=== PATIENT | male | born 1955 | race Caucasian/White ===

== ENCOUNTER 2024-02-05 14:35 | Emergency (ER) | payer OTHER ==
[2024-02-05 15:06] VITALS: BP 105/57; PULSE 71; RESP 19; TEMP 97.8; BMI 26.6
[2024-02-05] MEDS ORDERED: ACETAMINOPHEN INJECTION 100 ML IVPB ONE (15:54)
[2024-02-05] MEDS ORDERED: THIAMINE HCL 200 MG/2 ML VIAL ONE (15:54)
[2024-02-05 15:56] LABS: BASO % 1.7 % (0-2.0); EOS % 4.7 % (0-4.5); HEMATOCRIT 34.3 % (35.4-49); HEMOGLOBIN 10.8 GM/dL (11.7-16.9); LYMPH % 28.6 % (8-40); MCH 28.7 pg (25.7-33.7); MCHC 31.4 g/dl (32.0-35.9); MEAN CELL VOLUME 91.4 fl (80-96); MONO % 14.3 % (3.8-10.2); NEUT % 50.7 % (42.8-82.8); PLATELET COUNT 302 10^3/uL (134-434); RBC 3.76 M/mm3 (4.00-5.60); RDW 17.4 % (11.9-15.9); WHITE BLOOD COUNT 3.3 K/mm3 (4.0-10.0)
[2024-02-05] MEDS: ACETAMINOPHEN 1000 MG/100 ML BAG IVPB ONE (15:57)
[2024-02-05 16:29] LABS: POTASSIUM 4.2 mmol/L (3.5-5.1)
[2024-02-05 16:31] LABS: ALBUMIN 3.1 g/dl (3.4-5.0); CALCIUM 8.7 mg/dL (8.5-10.1)
[2024-02-05 16:32] LABS: BLOOD UREA NITROGEN 9.7 mg/dL (7-18); MAGNESIUM 1.6 mg/dL (1.8-2.4)
[2024-02-05 16:34] LABS: CREATININE 0.5 mg/dL (0.55-1.3)
[2024-02-05 16:35] LABS: PHOSPHOROUS 4.5 mg/dL (2.5-4.9)
[2024-02-05 16:36] LABS: BILIRUBIN,TOTAL 0.4 mg/dL (0.2-1); TOT PROT 7.2 g/dl (6.4-8.2)
[2024-02-05] MEDS: THIAMINE HCL 200 MG/2 ML VIAL IVPB ONE (16:48)
[2024-02-05] MEDS: LACTATED RINGERS SOLUTION 1000 ML INFUS.BAG IV ONE (16:48)
[2024-02-05] MEDS: MAGNESIUM SULFATE IN WATER 2 GM/50 ML IVPB IVPB ONE (16:48)
[2024-02-05] MEDS ORDERED: MAGNESIUM OXIDE 400 MG TABLET (FP) ONE (16:53)
[2024-02-05] MEDS ORDERED: THIAMINE 100 MG TABLET ONE (16:53)
[2024-02-05] MEDS: MAGNESIUM OXIDE 400 MG TABLET (FP) PO ONE (17:13)
[2024-02-05] MEDS: THIAMINE 100 MG TABLET PO ONE (17:15)
== END 2024-02-05 17:18 | disposition left against medical advice (07) ==
LOC: MERGE 14:35 → JER 14:35
PROC: 3E033NZ Introduction of Analgesics, Hypnotics, Sedatives into Peripheral Vein, Percutaneous Approach (ICD-10-PCS; principal; 2024-02-05)
DX: F10.920 Alcohol use, unspecified with intoxication, uncomplicated (principal); R10.9 Unspecified abdominal pain; R51.9 Headache, unspecified; Y90.9 Presence of alcohol in blood, level not specified
CPT/HCPCS: 36415; 80053; 83690; 83735; 84100; 85025; 86850; 86900; 86901; 99284-25; J0131

== ENCOUNTER 2024-02-05 20:16 | Emergency (ER) | payer OTHER ==
[2024-02-06 05:23] VITALS: BP 130/70; PULSE 76; RESP 18; TEMP 98; BMI 26.6
== END 2024-02-06 06:08 | disposition home or self-care (01) ==
LOC: EDBD → FER 20:16
DX: F10.920 Alcohol use, unspecified with intoxication, uncomplicated (principal); Y90.9 Presence of alcohol in blood, level not specified
CPT/HCPCS: 99283-25

== ENCOUNTER 2024-02-20 14:34 | Emergency (ER) | payer MEDICARE, OTHER ==
[2024-02-20 15:12] VITALS: RESP 18; TEMP 98.3; BMI 26.6
[2024-02-20 17:33] VITALS: BP 126/76; PULSE 80
== END 2024-02-20 18:04 | disposition home or self-care (01) ==
LOC: FER 14:34
DX: F10.90 Alcohol use, unspecified, uncomplicated (principal)
CPT/HCPCS: 99283-25

== ENCOUNTER 2024-02-28 03:38 | Emergency (ER) | payer MEDICARE, OTHER ==
[2024-02-28 03:44] VITALS: BP 126/79; PULSE 84; RESP 18; TEMP 97.8; BMI 25.8
== END 2024-02-28 06:44 | disposition home or self-care (01) ==
LOC: JER 03:38
DX: F10.129 Alcohol abuse with intoxication, unspecified (principal); R07.9 Chest pain, unspecified; G89.29 Other chronic pain; Y90.9 Presence of alcohol in blood, level not specified
CPT/HCPCS: 93005; 93010; 99283-25